=== PATIENT | female | born 1995 | race Asian ===

== ENCOUNTER 2017-05-23 08:24 | Emergency (ER) | payer OTHER ==
[2017-05-23 08:29] VITALS: BP 113/69; PULSE 67; TEMP 97.9; BMI 22.4
[2017-05-23] MEDS ORDERED: SODIUM CHLORIDE 1,000 ML IV STA (08:49)
[2017-05-23 08:57] LABS: HCG,QUALITATIVE URINE NEGATIVE
[2017-05-23 09:03] LABS: URINE APPEARANCE Clear; URINE BILIRUBIN Negative (NEGATIVE); URINE GLUCOSE (UA) Negative (NEGATIVE); URINE KETONE Negative (NEGATIVE); URINE NITRITE Negative (NEGATIVE); URINE PROTEIN Negative (NEGATIVE); URINE UROBILINOGEN 0.2 (0.2-1.0)
[2017-05-23 09:05] LABS: URINE BLOOD 1+ (NEGATIVE); URINE COLOR YELLOW
[2017-05-23 09:40] LABS: BASO % 0.1 % (0-2.0); EOS % 0.7 % (0-4.5); HEMATOCRIT 41.9 % (32.4-45.2); HEMOGLOBIN 14.1 GM/dl (10.7-15.3); LYMPH % 14.7 % (8-40); MCH 28.9 pg (25.7-33.7); MCHC 33.7 g/dl (32.0-36.0); MEAN CELL VOLUME 85.6 fl (80-96); MEAN PLT VOLUME 8.5 fl (7.5-11.1); MONO % 3.3 % (3.8-10.2); NEUT % 81.2 % (42.8-82.8); PLATELET COUNT 369 K/MM3 (134-434); RBC 4.89 M/mm3 (3.60-5.2); RDW 11.9 % (11.6-15.6); WHITE BLOOD COUNT 11.7 K/mm3 (4.0-10.8)
--- NOTE | 2017-05-23 10:06 | PDOC ---
History of Present Illness - General Chief Complaint: Pain, Acute Stated Complaint: ABD PAIN Time Seen by Provider: 05/23/17 08:25 History Source: Patient Exam Limitations: No Limitations - History of Present Illness Initial Comments: 05/23/17 10:01 22 year old female with history of constipation presents with rectal bleeding. The patient was feeling fine yesterday. Starting at midnight, started to develop intermittent diffuse abdominal pain that would come and go. The patient reported having loose stools that eventually turned into blood into toilet. Denies fevers, chill. States that she felt generally unwell. 1st time episode. Never had a colonoscopy. Denies nausea, vomiting. No prior abdominal or surgical history. Was concerned as she felt like there was just blood. Stated the pains were so bad that she had feinted from the pain. She is adopted, so she has no family history that she is aware of. Past History - Past Medical History Allergies/Adverse Reactions: Allergies Allergy/AdvReac Type Severity Reaction Status Date / Time No Known Allergies Allergy Verified 05/23/17 08:25 Home Medications: Ambulatory Orders Acetaminophen [Tylenol] 650 mg PO Q4H PRN #50 tablet 05/23/17 Ciprofloxacin [Cipro -] 500 mg PO Q12H #20 tablet 05/23/17 Metronidazole [Flagyl -] 500 mg PO Q8H #30 tablet 05/23/17 Norethindrone AC-Eth Estradiol [Microgestin 21 1-20 Tablet] 1 each PO DAILY 09/04 COPD: No Other medical history: DENIES - Suicide/Smoking/Psychosocial Hx Smoking History: Never smoked Hx Alcohol Use: Yes Drug/Substance Use Hx: No Substance Use Type: Alcohol Review of Systems - Review of Systems Able to Perform ROS?: Yes Comments:: 05/23/17 10:06 GENERAL/CONSTITUTIONAL: No fever, weakness. HEAD, EYES, EARS, NOSE AND THROAT: No change in vision. No ear pain or discharge. No sore throat. CARDIOVASCULAR: No chest pain or shortness of breath. RESPIRATORY: No cough, wheezing, or hemoptysis. GASTROINTESTINAL: +abdominal pain. +bloody stools. No nausea, vomiting, diarrhea , or decreased PO intolerance. GENITOURINARY: No dysuria, frequency, or change in urination. MUSCULOSKELETAL: No joint or muscle swelling or pain. No neck or back pain. SKIN: No rash NEUROLOGIC: No headache, vertigo, loss of consciousness, or change in strength/ sensation. ENDOCRINE: No increased thirst. No abnormal weight change. HEMATOLOGIC/LYMPHATIC: No anemia, easy bleeding, or history of blood clots. ALLERGIC/IMMUNOLOGIC: No hives or skin allergy. *Physical Exam - Vital Signs Last Vital Signs Temp Pulse Resp BP Pulse Ox 97.9 F 67 16 113/69 98 05/23/17 08:24 05/23/17 08:24 05/23/17 08:24 05/23/17 08:24 05/23/17 08:24 - Physical Exam Comments: 05/23/17 10:09 GENERAL: Awake, alert, and fully oriented, in no acute distress. HEAD: No signs of trauma EYES: PERRLA, EOMI, sclera anicteric, conjunctiva clear ENT: Auricles normal inspection, hearing grossly normal, nares patent, oropharynx clear without exudates. NECK: Normal ROM, supple, no lymphadenopathy, JVD, or masses LUNGS: Breath sounds equal, clear to auscultation bilaterally. No wheezes, and no crackles HEART: Regular rate and rhythm, normal S1 and S2, no murmurs, rubs or gallops ABDOMEN: Soft, nontender, normoactive bowel sounds. No guarding, no rebound. No masses RECTAL: small external hemorrhoid. No tear. Small amount of dry blood around the rectum. EXTREMITIES: Normal range of motion, no edema. No clubbing or cyanosis. No cords, erythema, or tenderness NEUROLOGICAL: Cranial nerves II through XII grossly intact. Normal speech, normal gait SKIN: Warm, Dry, normal turgor, no rashes or lesions noted. Heart Score/ECG Review #1 ECG reviewed & interpreted by me at: 10:05 05/23/17 10:16 NSR 61, no std/nigel, T wave flat avL, III, normal axis, normal intervals, QTC 416 msec, no brugada, no WPW, no HOCM ED Treatment Course - LABORATORY CBC & Chemistry Diagram: 05/23/17 08:58 05/23/17 08:58 - ADDITIONAL ORDERS Additional order review: Laboratory Results 05/23/17 05/23/17 08:58 08:31 Urine Color Yellow Urine Appearance Clear Urine pH 6.0 Ur Specific [place] 1.020 Urine Protein Negative Urine Glucose (UA) Negative Urine Ketones Negative Urine Blood 1+ H Urine Nitrite Negative Urine Bilirubin Negative Urine Urobilinogen 0.2 Ur Leukocyte Esterase Trace H Urine HCG, Qual Negative Stool Occult Blood Trace 05/23/17 08:58 RBC 4.89 MCV 85.6 MCHC 33.7 RDW 11.9 MPV 8.5 Neutrophils % 81.2 Lymphocytes % 14.7 Monocytes % 3.3 L Eosinophils % 0.7 Basophils % 0.1 - RADIOLOGY Radiology Studies Ordered: Category Date Time Status ABDOMEN FLAT & UPRIGHT [RAD] Stat Radiology 05/23/17 08:49 Completed - Medications Given in the ED: ED Medications Discontinued Medications Generic Name Dose Route Start Last Admin Trade Name Freq PRN Reason Stop Dose Admin Sodium Chloride 1,000 mls @ 1,000 mls/hr 05/23/17 08:49 05/23/17 09:07 Normal Saline - IV 05/23/17 09:48 1,000 mls/hr ASDIR STA Administration Medical Decision Making - Medical Decision Making 05/23/17 10:16 Vital Signs Temp Pulse Resp BP Pulse Ox 97.9 F 67 16 113/69 98 05/23/17 08:24 05/23/17 08:24 05/23/17 08:24 05/23/17 08:24 05/23/17 08:24 22-year-old female presents with abdominal pain and bloody stools. He may be possible the patient has internal hemorrhoids given her history of constipation which is her bowels. However, given her age and blood in her stools, we'll obtain a CAT scan abdomen pelvis to rule out inflammatory versus infectious colitis. Patient's fainting episode is likely secondary to vasovagal. We'll monitor the patient give pain medication and IV fluids. Reassess. 05/23/17 11:55 CAT scan of the abdomen pelvis done shows proctocolitis extending from the hepatic flexure to the sigmoid colon and rectum. Infectious versus inflammatory. CBC, BMP 05/23/17 08:58 05/23/17 08:58 CMP Sodium 132 mmol/L (136-145) L 05/23/17 08:58 Potassium 3.6 mmol/L (3.5-5.1) 05/23/17 08:58 Chloride 100 mmol/L (98-107) 05/23/17 08:58 Carbon Dioxide 23 mmol/L (22-28) 05/23/17 08:58 Anion Gap 9 (8-16) 05/23/17 08:58 BUN 13 mg/dl (7-18) 05/23/17 08:58 Creatinine 0.7 mg/dl (0.6-1.3) 05/23/17 08:58 Creat Clearance w eGFR > 60 (>60) 05/23/17 08:58 Random Glucose 100 mg/dl (74-106) 05/23/17 08:58 Calcium 9.3 mg/dl (8.4-10.2) 05/23/17 08:58 Total Bilirubin 0.6 mg/dl (0.2-1.0) 05/23/17 08:58 AST 19 U/L (10-42) 05/23/17 08:58 ALT 12 U/L (10-40) 05/23/17 08:58 Alkaline Phosphatase 64 U/L (32-92) 05/23/17 08:58 Troponin I < 0.03 ng/ml (0.03-0.50) L 05/23/17 08:58 Total Protein 7.8 g/dl (6.4-8.3) 05/23/17 08:58 Albumin 4.2 g/dl (3.5-5.0) 05/23/17 08:58 Lipase 21 U/L (22-51) L 05/23/17 08:58 Urine Test Results Urine Color Yellow 05/23/17 08:31 Urine Appearance Clear 05/23/17 08:31 Urine pH 6.0 (4.5-8) 05/23/17 08:31 Ur Specific [place] 1.020 (1.005-1.025) 05/23/17 08:31 Urine Protein Negative (NEGATIVE) 05/23/17 08:31 Urine Glucose (UA) Negative (NEGATIVE) 05/23/17 08:31 Urine Ketones Negative (NEGATIVE) 05/23/17 08:31 Urine Blood 1+ (NEGATIVE) H 05/23/17 08:31 Urine Nitrite Negative (NEGATIVE) 05/23/17 08:31 Urine Bilirubin Negative (NEGATIVE) 05/23/17 08:31 Ur Leukocyte Esterase Trace (NEGATIVE) H 05/23/17 08:31 Urine RBC 3-5 /hpf (0-3) 05/23/17 08:31 Urine WBC 5-10 (0-5) 05/23/17 08:31 Ur Epithelial Cells 5-10 /HPF 05/23/17 08:31 The findings are consistent with proctocolitis. Given her symptoms, we'll need to treat as potential infectious with ciprofloxacin and Flagyl. We'll prescribe for 10 days. Patient advised on no alcohol while taking these medications. Given her age, she is a risk for irritable bowel disease. I have strongly advised the patient and her mother that the patient will need an urgent outpatient colonoscopy. This is to rule out Crohn's disease or ulcerative colitis. The patient's pain is improved. She refused oxycodone here in the ER. I advised patient that if her stools or persistently bloody and or patient is having severe abdominal pain to return to the ER for further evaluation. Case discussed with GI principal consultant Dr. Lopez who agrees with plan for antibiotics and rapid outpatient colonoscpy (if patient is feeling better). Patient verbalizes understanding and agrees with plan. I discussed the physical exam findings, ancillary test results and final diagnoses with the patient. I answered all of the patient's questions. The patient was satisfied with the care received and felt comfortable with the discharge plan and treatment plan. The patient will call their primary care physician within 24 hours to arrange follow-up and will return to the Emergency Department with any new, persistant or worsening symptoms. *DC/Admit/Observation/Transfer Diagnosis at time of Disposition: Proctocolitis - Discharge Dispostion Disposition: HOME Condition at time of disposition: Stable Admit: No - Prescriptions Prescriptions: Acetaminophen [Tylenol] 650 mg PO Q4H PRN #50 tablet PRN Reason: Pain Ciprofloxacin [Cipro -] 500 mg PO Q12H #20 tablet Metronidazole [Flagyl -] 500 mg PO Q8H #30 tablet - Referrals Referrals: Marcin Lopez MD [Staff Physician] - - Patient Instructions Printed Discharge Instructions: DI for Colitis Additional Instructions: It is very important that you take the antibiotics as prescribed. Take 500 mg of ciprofloxacin every 12 hours for 10 days. Also take 500 mg of Flagyl every 8 hours for 10 days. Do not drink alcohol and his medications as it will make you feel ill. If he notices any worsening bloody diarrhea or uncontrollable abdominal pain, return to the ER for further evaluation. It is very important to call your doctor to schedule an outpatient colonoscopy as you will need to be investigated for potential inflammatory disorder such as Crohn's disease or ulcerative colitis. Call to schedule appointment. If you prefer, you may make an appointment with our GI specialist as well. - Post Discharge Activity Forms/Work/School Notes: Back to School
[2017-05-23] MEDS ORDERED: ACETAMINOPHEN 1000 MG/100 ML VIAL (NON FORMULARY) IVPB ONE (10:08)
[2017-05-23 10:16] LABS: ALBUMIN 4.2 g/dl (3.5-5.0); ANION GAP 9 (8-16); BILIRUBIN,TOTAL 0.6 mg/dl (0.2-1.0); BLOOD UREA NITROGEN 13 mg/dl (7-18); CALCIUM 9.3 mg/dl (8.4-10.2); CHLORIDE 100 mmol/L (98-107); CO2 23 mmol/L (22-28); CREATININE 0.7 mg/dl (0.6-1.3); GLUCOSE,RANDOM 100 mg/dl (74-106); LIPASE 21 U/L (22-51); POTASSIUM 3.6 mmol/L (3.5-5.1); SGOT/AST 19 U/L (10-42); SGPT/ALT 12 U/L (10-40); SODIUM 132 mmol/L (136-145); TOT PROT 7.8 g/dl (6.4-8.3)
[2017-05-23] MEDS ORDERED: ACETAMINOPHEN INJECTION 100 ML IVPB ONE (10:29)
[2017-05-23 10:30] LABS: ALK PHOS 64 U/L (32-92)
[2017-05-23] MEDS ORDERED: metroNIDAZOLE 250 MG TABLET PO ONE (11:31)
[2017-05-23] MEDS ORDERED: CIPROFLOXACIN 500 MG TABLET (RESTRICTED TO ID) PO ONE (11:31)
[2017-05-23] MEDS ORDERED: oxyCODONE HCL 5 MG TABLET PO ONE (11:42)
[2017-05-23] MEDS ORDERED: metroNIDAZOLE 250 MG TABLET ONE (11:49)
[2017-05-23] MEDS ORDERED: CIPROFLOXACIN 250 MG TABLET (RESTRICTED TO ID) PO ONE (11:50)
--- NOTE | 2017-05-23 12:22 | PN ---
Progress Note (short form) - Note Progress Note: Discussed with Dr. Varela.
--- NOTE | 2017-05-24 15:36 | EKG ---
Test Reason : Blood Pressure : / mmHG Vent. Rate : 061 BPM Atrial Rate : 061 BPM P-R Int : 144 ms QRS Dur : 074 ms QT Int : 414 ms P-R-T Axes : 072 043 046 degrees QTc Int : 416 ms NORMAL SINUS RHYTHM RSR' OR QR PATTERN IN V1 SUGGESTS RIGHT VENTRICULAR CONDUCTION DELAY NONSPECIFIC T WAVE ABNORMALITY NO PREVIOUS ECGS AVAILABLE Confirmed by RONEY COVARRUBIAS MD ([id number]) on 05/24/2017 3:35:48 PM Referred By: DR GARSIA Confirmed By:RONEY COVARRUBIAS MD
== END 2017-05-23 12:18 | disposition home or self-care (01) ==
LOC: FER 08:24
PROC: 3E033NZ Introduction of Analgesics, Hypnotics, Sedatives into Peripheral Vein, Percutaneous Approach (ICD-10-PCS; principal; 2017-05-23)
PROC: 3E0337Z Introduction of Electrolytic and Water Balance Substance into Peripheral Vein, Percutaneous Approach (ICD-10-PCS; 2017-05-23)
DX: K51.30 Ulcerative (chronic) rectosigmoiditis without complications (principal)
CPT/HCPCS: 36415; 74019-TC; 74177-TC; 80053; 81003; 81015; 82272; 83690; 84484; 84703; 85025; 87086; 93005; 99282-25